=== PATIENT | female | born 1955 | race Caucasian/White ===

== ENCOUNTER 2023-05-25 08:18 | Emergency (ER) | payer OTHER ==
[~2023-05-25] VITALS: Ht 162.6 cm; Wt 63.6 kg
[2023-05-25] MEDS ORDERED: NAPR-1197 PO (08:22)
[2023-05-25] MEDS ORDERED: ANAS1TAB50 PO (08:22)
[2023-05-25] MEDS ORDERED: blood pressure PO (08:22)
[2023-05-25 08:23] VITALS: TEMP 98.3
[2023-05-25] MEDS: ONDANSETRON HCL 4 MG/2 ML VIAL IVP ONE (09:18)
[2023-05-25] MEDS: SODIUM CHLORIDE 0.9% 1,000 ML IV ONE (09:18)
[2023-05-25 09:23] LABS: HEMATOCRIT 28.2 % (36-46); HEMOGLOBIN 9.2 g/dL (12.0-16.0); MEAN CORPUSCULAR HEMOGLOBIN 30.6 pg (26.0-34.0); MEAN CORPUSCULAR HGB CONC 32.5 G/dL (31.0-37.0); MEAN CORPUSCULAR VOLUME 94 fL (80-100); PLATELET COUNT (AUTO) 283 K/uL (150-450); RED BLOOD CELL COUNT(AUTO) 2.99 MIL/uL (4.00-5.20); RED CELL DISTRIBUTION WIDTH 18.1 % (11.5-14.5)
[2023-05-25 09:28] LABS: CALCIUM, TOTAL 11.1 mg/dL (8.8-10.5); CREATININE 1.45 mg/dL (0.60-1.30); POTASSIUM 3.9 mmol/L (3.5-5.1)
[2023-05-25 09:34] LABS: ALBUMIN 3.2 g/dL (3.4-5.0); BILIRUBIN,TOTAL 0.6 mg/dL (0.1-1.0); TOTAL PROTEIN, SERUM 8.7 g/dL (6.4-8.2)
[2023-05-25 10:34] LABS: BAND NEUTROPHILS % (MANUAL) 10 % (0-5); CORRECTED WHITE BLOOD COUNT 9.4 K/uL (4.5-11.0); LYMPHOCYTES % (MANUAL) 37 % (22-44); MONOCYTES % (MANUAL) 2 % (2-9); SEGMENTED NEUTROPHILS % 51 % (40-70); TOTAL CELLS COUNTED 100; WHITE BLOOD COUNT (AUTO) 9.4 K/uL (4.5-11.0)
[2023-05-25 10:35] LABS: RBC MORPHOLOGY COMMENT ABNORMAL RBC MORPH
[2023-05-25 11:35] VITALS: BP 124/64; PULSE 92; RESP 16
[2023-05-25] MEDS ORDERED: ONDA-104 PO (12:01)
== END 2023-05-25 13:05 | disposition home or self-care (01) ==
LOC: EMS 08:21
DX: R11.2 Nausea with vomiting, unspecified (principal); I10 Essential (primary) hypertension
CPT/HCPCS: 99283; 96374; 96361; 80053; 85025; 36415; J2405; J7030